=== PATIENT | female | born 1975 | race Two or more races ===

== ENCOUNTER → 2017-03-11 | Outpatient (REF) | payer MEDICAID, OTHER | LOC: M SMT 12:55 | PROVIDERS: ATTEND Nurse Practitioner Family | DX: N20.0 Calculus of kidney (principal) ==

== ENCOUNTER → 2025-05-15 | Outpatient (REF) | LOC: M PLAIMG 11:15 | PROVIDERS: ATTEND Internal Medicine | DX: R52 Pain, unspecified (principal) ==